=== PATIENT | male | born 1945 | race Caucasian/White ===

== ENCOUNTER 2022-04-28 06:37 | Day surgery (SDC) | payer MEDICARE ==
[~2022-04-28] VITALS: Ht 165.1 cm; Wt 65.8 kg
[2022-04-28] MEDS ORDERED: CEFAZOLIN 1 GM IVPB PREMIX 50 ML IV ONE (07:00)
[2022-04-28 07:55] LABS: PROTHROMBIN TIME 10.3 SECS (9.5-12.5)
[2022-04-28] MEDS ORDERED: BUPIVACAINE LIPOSOME/PF 266 MG/20 ML VIAL INFIL ONE (08:16)
[2022-04-28] MEDS ORDERED: ePHEDrine sulfate 50 MG/ML VIAL IVP ONE (08:50)
[2022-04-28] MEDS ORDERED: ONDANSETRON HCL 4 MG/2 ML VIAL IVP ONE (08:50)
[2022-04-28] MEDS ORDERED: CEFAZOLIN 2 GM IVPB PREMIX 50 ML IV ONE (08:50)
[2022-04-28] MEDS ORDERED: DEXAMETHASONE SOD PHOSPHATE 4 MG/ML VIAL IVP ONE (08:50)
[2022-04-28] MEDS ORDERED: SEVOFLURANE 15 MIN GAS INH ONE (08:50)
[2022-04-28] MEDS ORDERED: fentaNYL CITRATE/PF 100 MCG/2 ML AMP IVP ONE (08:50)
[2022-04-28] MEDS ORDERED: BUPIVACAINE /EPINEPHRINE/PF 0.25% 30 ML VIAL INJ ONE (08:50)
[2022-04-28] MEDS ORDERED: ROCURONIUM BROMIDE 10 MG/ML (ZEMURON) IV ONE (08:50)
[2022-04-28] MEDS ORDERED: SUGAMMADEX SODIUM 200 MG/2 ML VIAL IV ONE (08:50)
[2022-04-28] MEDS ORDERED: PROPOFOL 200MG/ 20ML VIAL (DIPRIVAN) IV ONE (08:50)
[2022-04-28] MEDS ORDERED: LR 1,000 ML IV.SOLN IV ONE (08:50)
[2022-04-28] MEDS ORDERED: MIDAZOLAM HCL 5 MG/5 ML VIAL IVP ONE (08:50)
[2022-04-28] MEDS ORDERED: NS IRRIG SOLN 1000 ML IR ONE (08:50)
[2022-04-28] MEDS ORDERED: LIP80 PO (09:15)
[2022-04-28] MEDS ORDERED: CLOP75TA32 PO (09:15)
[2022-04-28] MEDS ORDERED: OMEG-158 PO (09:15)
[2022-04-28] MEDS ORDERED: AMLO5TAB4 PO (09:15)
[2022-04-28] MEDS ORDERED: FAMO40TA71 PO (09:15)
[2022-04-28] MEDS ORDERED: CALC200T47 PO (09:15)
[2022-04-28] MEDS ORDERED: ASA81 PO (09:15)
[2022-04-28] MEDS ORDERED: BENA-6 PO (09:15)
[2022-04-28] MEDS ORDERED: MORPHINE 4 MG INJ. 4 MG/ML VIAL IVP PRN ×3 (10:45)
[2022-04-28] MEDS ORDERED: ONDANSETRON HCL 4 MG/2 ML VIAL IVP PRN ×2 (10:45→14:00)
[2022-04-28 11:50] VITALS: BP_SYST 116
[2022-04-28] MEDS ORDERED: MORPHINE 2 MG/ML INJ. SYRINGE IVP PRN (14:00)
[2022-04-28] MEDS: D5/0.45 NS 1,000 ML IV SCH (14:06)
[2022-04-28] MEDS ORDERED: traMADol HCL HCL 50 MG TABLET (ULTRAM) PO PRN (14:15)
[2022-04-28] MEDS: CEFAZOLIN SODIUM 500 MG in D5W 50 ML IV SCH ×2 (15:19→21:11)
[2022-04-28] MEDS: NORMAL SALINE 5 ML DISP.SYRIN IVF SCH ×2 (15:21→22:00)
[2022-04-28 16:06] VITALS: BP_SYST 96
[2022-04-28 20:00] VITALS: BP_SYST 95
[2022-04-28] MEDS ORDERED: NYSTATIN 15 GM TOPICAL POWDER TP SCH (21:00)
[2022-04-29] MEDS: D5/0.45 NS 1,000 ML IV SCH (03:25)
[2022-04-29 04:23] VITALS: BP_SYST 122
[2022-04-29] MEDS: NORMAL SALINE 5 ML DISP.SYRIN IVF SCH (06:24)
[2022-04-29] MEDS: CEFAZOLIN SODIUM 500 MG in D5W 50 ML IV SCH (06:26)
[2022-04-29 08:00] VITALS: BP_SYST 133
[2022-04-29] MEDS ORDERED: FAMOTIDINE 20 MG TABLET PO SCH (09:00)
[2022-04-29] MEDS ORDERED: ENOXAPARIN SODIUM 30 MG/0.3 ML SYRINGE SUBCUT SCH (09:00)
[2022-04-29] MEDS ORDERED: amLODIPine BESYLATE 5 MG TABLET PO SCH (09:00)
[2022-04-29] MEDS ORDERED: BENAZEPRIL HCL 20 MG TABLET (LOTENSIN) PO SCH (09:00)
[2022-04-29 11:19] VITALS: BP_SYST 133
[2022-04-29 11:23] VITALS: BP_SYST 115
== END 2022-04-29 12:49 | disposition home or self-care (01) ==
LOC: SDS 06:37 → SMU 06:38 → EDSTATUS 08:30 → STU 11:58 → SDS 04-29 12:49
PROVIDERS: ATTEND Surgery
DX: K40.90 Unilateral inguinal hernia, without obstruction or gangrene, not specified as recurrent (principal); I10 Essential (primary) hypertension; K21.9 Gastro-esophageal reflux disease without esophagitis; E78.00 Pure hypercholesterolemia, unspecified; Z86.73 Personal history of transient ischemic attack (TIA), and cerebral infarction without residual deficits; Z79.01 Long term (current) use of anticoagulants; Z79.899 Other long term (current) drug therapy; Z20.822 Contact with and (suspected) exposure to COVID-19
CPT/HCPCS: 87081; 36415 ×2; 49505; 85610; 85730; 88302; U0003; J3490 ×2; C9290; J0690 ×3; J1100; J2250; J2405; J2704; J3010; J7060; J7120; J1650; C1781